=== PATIENT | female | born 1985 | race Two or more races ===

== ENCOUNTER 2022-01-15 00:49 | Inpatient (IN) | payer MEDICAID ==
[~2022-01-15] VITALS: Ht 154.9 cm; Wt 67.6 kg
[2022-01-15 02:22] LABS: HEMOGLOBIN 11.9 gm/dl (12.3-15.3); RED BLOOD COUNT 3.97 M/UL (4.00-5.10); WHITE BLOOD COUNT 11.5 K/UL (4.5-11.0)
[2022-01-15] MEDS ORDERED: IBUPROFEN600 MG PO (10:10)
[2022-01-15] MEDS ORDERED: HYDROCODON-ACE1 EAC4 PO (10:10)
[2022-01-15] MEDS ORDERED: DOCUSATE SODIU100 MG PO (10:10)
[2022-01-16 04:34] LABS: HEMOGLOBIN 9.3 gm/dl (12.3-15.3)
== END 2022-01-17 16:04 | disposition home or self-care (01) | DRG 788 ==
LOC: GENOP 00:49 → OB 02:27
PROVIDERS: Obstetrics & Gynecology; ADMIT Obstetrics & Gynecology
PROC: 4A1HXCZ Monitoring of Products of Conception, Cardiac Rate, External Approach (ICD-10-PCS; 2022-01-15)
PROC: 3E0234Z Introduction of Serum, Toxoid and Vaccine into Muscle, Percutaneous Approach (ICD-10-PCS; 2022-01-15)
PROC: 10D00Z1 Extraction of Products of Conception, Low, Open Approach (ICD-10-PCS; principal; 2022-01-15 08:38)
DX: O99.12 Other diseases of the blood and blood-forming organs and certain disorders involving the immune mechanism complicating childbirth (principal); D69.6 Thrombocytopenia, unspecified; Z20.822 Contact with and (suspected) exposure to COVID-19; Z3A.38 38 weeks gestation of pregnancy; Z37.0 Single live birth; O76 Abnormality in fetal heart rate and rhythm complicating labor and delivery; O62.1 Secondary uterine inertia; Z23 Encounter for immunization
CPT/HCPCS: 36415; 36600; 81001; 82800; 85014; 85018; 85025; 90715; C9113; J0456; J0595; J0690; J1170; J1885; J2590; J2704; J3010; J7030